=== PATIENT | female | born 1955 | race Caucasian/White ===

== ENCOUNTER 2024-01-26 19:40 | Outpatient (REF) | payer MEDICARE, SELFPAY ==
--- NOTE | 2024-01-26 16:30 | SKI_PTH ---
PATIENT: Jessica Raymundo LOC: [facility] U#:[id number] AGE/SX: 68/F ROOM: RE01/26/[address]: Tanner Petty MD : 1955 BED: DIS: 01/26/2024 SPEC #: [id number] RECD: 01/27/24 12:53 STATUS: JESSICA RERoxanne #: [id number] DONNA: 01/26/24 16:[address]: Tanner Petty DEPT: Surgical Specimen RECD BY: Anabell Byrnes ENTERED: 01/27/24 12:54 SP TYPE: SKI OTHR DR: Janette Mccoy Tissues: 1 - SKIN BIOPSY(SHAVE/PUNCH) Procedures: SKIN LEVEL 4 Comments: [id number]
== END 2024-01-26 19:41 | disposition home or self-care (01) ==
LOC: LBN 19:40
PROVIDERS: PCP Nurse Practitioner; Visit Provider Otolaryngology
DX: L98.9 Disorder of the skin and subcutaneous tissue, unspecified (principal); C44.311 Basal cell carcinoma of skin of nose
CPT/HCPCS: 88305

== ENCOUNTER 2024-10-28 14:44 | Outpatient (REF) | payer MEDICARE, SELFPAY ==
--- NOTE | 2024-10-28 13:42 | SKI_PTH ---
PATIENT: Jessica Raymundo LOC: [facility] U#:[id number] AGE/SX: 69/F ROOM: RE10/28/[address]: Tanner Petty MD : 1955 BED: DIS: 10/28/2024 SPEC #: [id number] RECD: 10/28/24 18:10 STATUS: JESSICA RERoxanne #: [id number] DONNA: 10/28/24 13:[address]: Tanner Petty DEPT: Surgical Specimen RECD BY: Anabell Byrnes ENTERED: 10/28/24 18:11 SP TYPE: ANH ROSAS DR: Janette Mccoy Tissues: 1 - SKIN BIOPSY(SHAVE/PUNCH) 2 - SKIN BIOPSY(SHAVE/PUNCH) Procedures: SKIN LEVEL 4 Comments: [id number]
== END 2024-10-28 14:45 | disposition home or self-care (01) ==
LOC: LBN 14:44
PROVIDERS: PCP Nurse Practitioner; Visit Provider Otolaryngology
DX: C44.311 Basal cell carcinoma of skin of nose (principal)
CPT/HCPCS: 88305